=== PATIENT | male | born 1990 | race African-American/Black ===

== ENCOUNTER 2020-10-15 13:14 | Emergency (ER) | payer MEDICAID ==
[~2020-10-15] VITALS: Ht 185.4 cm; Wt 74.8 kg
[2020-10-15 13:59] VITALS: BP 121/79
[2020-10-15 14:25] VITALS: BP 121/79
--- NOTE | 2020-10-15 14:34 | Emergency Room Report ---
History of Present Illness General Chief Complaint: Flu Like Symptoms Source: Patient Present Illness HPI 29-year-old male with no significant past medical history here complaining of 3 days of cough and congestion. Denies any shortness of breath and wheezing at this time. Reports that had a Covid test done 3 days ago and was negative. Denies fever and chills, diarrhea, loss of taste and smell. Reports that he smokes cigarettes every day. Is in no distress and vital signs are within normal limits. Has not taken medication for symptom relief. 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: No Patient History Past Medical History: see triage record Past Surgical History: none Pertinent Family History: none Social History: Reports: smoking Immunizations: UTD Reviewed Nursing Documentation: PMH: Agreed; PSxH: Agreed Nursing Documentation-PMH Past Medical History: No Stated History Review of Systems All Other Systems: negative except mentioned in HPI Physical Exam Vital Signs Date Time Temp Pulse Resp B/P (MAP) Pulse Ox O2 Delivery O2 Flow Rate FiO2 10/15/20 13:31 98.2 76 20 121/79 (93) 96 Room Air Sp02 EP Interpretation: reviewed, normal General Appearance: no apparent distress, alert, GCS 15, non-toxic Head: normocephalic, atraumatic Eyes: bilateral eye normal inspection, bilateral eye PERRL ENT: no angioedema Neck: full range of motion, supple, no meningismus Respiratory: no respiratory distress, no retraction, no accessory muscle use Cardiovascular #1: regular rate, rhythm, no edema Gastrointestinal: non tender Rectal: deferred Musculoskeletal: back normal Neurologic: alert, motor strength/tone normal, oriented x3, sensory intact, responsive, speech normal Psychiatric: judgement/insight normal, memory normal, mood/affect normal, no suicidal/homicidal ideation Skin: no rash Lymphatic: no adenopathy Medical Decision Making PA Attestation All my diagnosis and treatment plans were reviewed ad discussed with my supervising physician Dr. Zambrano Diagnostic Impression: Primary Impression: URI (upper respiratory infection) ER Course 29-year-old male with no significant past medical history here complaining of 3 days of cough and congestion. Denies any shortness of breath and wheezing at this time. Reports that had a Covid test done 3 days ago and was negative. D enies fever and chills, diarrhea, loss of taste and smell. Reports that he smokes cigarettes every day. Is in no distress and vital signs are within normal limits. Has not taken medication for symptom relief. Ddx considered but are not limited to: bronchitis, PNA, URI viral, bacterial bronchitis, URI Vital signs: are WNL, pt. is afebrile H&PE are most consistent with: URI ORDERS: Chest x-ray, azithromycin, prednisone, Phenergan, albuterol ED INTERVENTIONS: None required at this time. DISCHARGE: At this time pt. is stable for d/c to home. Will provide printed patient care instructions, and any necessary prescriptions. Care plan and follow up instructions have been discussed with the patient prior to discharge. Patient take medication as directed, follow primary care provider, if worsening symptoms return to the emergency room Chest X-Ray Diagnostic Results Chest X-Ray Diagnostic Results : Chest X-Ray Ordered: Yes # of Views/Limited/Complete: 1 View Indication: Other EP Interpretation: Yes ADELAIDA Xray: Interpretation reviewed, by supervising MD, and agrees with findings. Interpretation: no consolidation, no effusion, no pneumothorax Impression: No acute disease Electronically Signed by: Rafael Mejia PA-C Last Vital Signs Date Time Temp Pulse Resp B/P (MAP) Pulse Ox O2 Delivery O2 Flow Rate FiO2 10/15/20 13:59 98.2 20 121/79 96 Room Air 10/15/20 13:59 76 Disposition: HOME, SELF-CARE Condition: Stable Scripts Promethazine Hcl (PROMETHAZINE HCL*) 6.25 Mg/5 Ml Syrup 5 ML ORAL Q8H, #120 ML 0 Refills Prov: Rafael Muller 10/15/20 Prednisone* (PREDNISONE*) 20 Mg Tablet 40 MG ORAL DAILY for 5 Days, #10 TAB Prov: Rafael Muller 10/15/20 Albuterol Sulfate (VENTOLIN HFA) 18 Gm Hfa.aer.ad 2 PUFFS INH EVERY 6 HOURS, #18 GM 0 Refills Prov: Rafael Muller 10/15/20 Azithromycin* (ZITHROMAX*) 250 Mg Tablet 250 MG ORAL DAILY, #6 TAB 0 Refills Take two tables once daily for 1 day, then one tablet once daily for 4 days. Prov: Rafael Muller 10/15/20 Referrals: [facility],REFERRING (PCP) Patient Instructions: Upper Respiratory Infection, Adult, [id number] Additional Instructions: Take medication as directed, follow primary care provider, if worsening symptoms return to the emergency room Rafael Muller Oct 15, 2020 14:34
[2020-10-15] MEDS ORDERED: VENTOLIN HFA18 GM INH (14:35)
[2020-10-15] MEDS ORDERED: ZITHROMAX250 MG ORAL (14:35)
[2020-10-15] MEDS ORDERED: PREDNISONE20 MG ORAL (14:35)
[2020-10-15] MEDS ORDERED: PROMETHAZI6.25 MG/1 ORAL (14:35)
--- NOTE | 2020-10-15 15:14 | Diagnostic Imaging Report ---
Indication: Shortness of breath Technique: One view of the chest Comparison: 03/23/2010 Findings: Lungs and pleural spaces are clear. The heart size is normal. No significant change Impression: No acute process
== END 2020-10-15 14:25 | disposition home or self-care (01) ==
LOC: EMR 14:04
DX: J06.9 Acute upper respiratory infection, unspecified (principal); F17.200 Nicotine dependence, unspecified, uncomplicated; F17.210 Nicotine dependence, cigarettes, uncomplicated
CPT/HCPCS: 71045; Z7502; 99283